=== PATIENT | female | born 1960 | race Caucasian/White ===

== ENCOUNTER 2017-11-11 21:05 | Emergency (ER) | payer SELFPAY ==
--- NOTE | 2017-11-11 22:06 | ER Document Report ---
ED General - General Chief Complaint: Leg Pain Stated Complaint: LEFT LEG PAIN Time Seen by Provider: 11/11/17 22:05 Notes: Patient is a 57-year-old female that presents to the emergency department for chief complaint of left leg swelling and knee pain. Patient states that he has been having these symptoms for about 2 weeks. And this seemed to be worse so she decided to come to the emergency department. He states the pain is mainly around her left knee which she is noticed the swelling, and then it started to swell more around her ankle as well. When she noticed some redness that she is concerned that which brought her to the emergency department. She rates the pain around her knee as a 5 out of 10, worse with range of motion. She states that she had an injury several months ago when she stepped on the floor board in the house she was living in with her left leg, and at that time she had her injured her left knee. She also reports having chronic Lyme disease, and she feels that her joints have been aching more recently well. She was diagnosed with this approximately 4 years ago. She denies having any fevers, chills, chest pain, shortness of breath, nausea, vomiting or abdominal pain. Past Medical History: Chronic Lyme disease Past Surgical History: Social History: Denies tobacco, alcohol or drug use Family History: Reviewed and noncontributory for presenting illness Allergies: Reviewed, see documented allergy list. REVIEW OF SYSTEMS: Unless otherwise stated in this report the patient's positive and negative responses for review of systems for constitutional, eyes, ENT, cardiovascular, respiratory, gastrointestinal, neurological, genitourinary, musculoskeletal, and integumentary systems and related systems to the presenting problem are either as stated in the HPI or were not pertinent or were negative for the symptoms and/or complaints related to the presenting medical problem. PHYSICAL EXAMINATION: Vital signs reviewed, nursing noted reviewed. GENERAL: Well-appearing, well-nourished and in no acute distress. HEAD: Atraumatic, normocephalic. EYES: Eyes appear normal, extraocular movements intact, sclera anicteric, conjunctiva are normal. ENT: nares patent, oropharynx clear without exudates. Moist mucous membranes. NECK: Normal range of motion, supple without lymphadenopathy LUNGS: Breath sounds clear to auscultation bilaterally and equal. No wheezes rales or rhonchi. HEART: Regular rate and rhythm without murmurs ABDOMEN: Soft, nontender, normoactive bowel sounds. No rebound, guarding, or rigidity. No masses appreciated. EXTREMITIES: The left knee has a mild effusion, and palpable Cormier's cyst, and some discomfort with range of motion with flexion and extension, there is 1+ pitting edema distal to the left knee. With mild erythema and chronic stasis changes, no evidence of cellulitis, no warmth. Patient noted to have discomfort with range of motion of the hands, and she does have ulnar deviation of her metacarpal phalangeal joints, bilaterally. The rest of her extremity exam is grossly unremarkable. NEUROLOGICAL: No focal neurological deficits. Moves all extremities spontaneously Motor and sensory grossly intact on exam. PSYCH: Normal mood, normal affect. SKIN: Warm, Dry, normal turgor, no rashes or lesions noted on exposed skin TRAVEL OUTSIDE OF THE [place] IN LAST 30 DAYS: No - Related Data Allergies/Adverse Reactions: acetaminophen Allergy (Verified 11/11/17 22:38) Past Medical History - Social History Smoking Status: Never Smoker Family History: Reviewed & Not Pertinent Physical Exam - Vital signs Vitals: Temp Pulse Resp BP Pulse Ox 98.1 F 87 20 145/62 H 100 11/11/17 21:43 11/11/17 21:43 11/11/17 21:43 11/11/17 21:43 11/11/17 21:43 Course - Re-evaluation Re-evalutation: Patient seen and examined vital signs reviewed. imaging were ordered as appropriate for the patient's presenting symptoms and complaint, with consideration of any critical or life threatening conditions that may be associated with their obtained history and exam as noted above. Patient was treated with IM Depo-Medrol 40 mg, and naproxen, also apply Jae wrap to the left knee. Results were reviewed when available and demonstrated left knee arthritis on knee x-ray The patient was re-evaluated and was improved Evaluation was most consistent with Cormier's cyst, left knee effusion, and pain, likely from prior injury, however given unilateral lower extremity edema, there is a mild suspicion for possible DVT, therefore will order duplex imaging to be performed as an outpatient tomorrow morning, patient was agreeable to this, stated that she will follow-up with the imaging center tomorrow morning. Results were discussed with the patient at this point, after careful consideration I feel that that patient can be discharged from the emergency department, the patient was educated treatments and reasons to return to the emergency department based on their presumed diagnosis as noted above, they were advised to followup with a primary care physician in 2-3 days. Patient was agreeable to plan of care. *Note is created using voice recognition software and may contain spelling, syntax or grammatical errors. Knee X-Ray 11/11/17 22:22 IMPRESSION: No acute findings. - Vital Signs Vital signs: Temp Pulse Resp BP Pulse Ox 98.1 F 87 20 145/62 H 100 11/11/17 21:43 11/11/17 21:43 11/11/17 21:43 11/11/17 21:43 11/11/17 21:43 - EKG Interpretation by Me Additional EKG results interpreted by me: EKG demonstrates sinus rhythm with a ventricular rate of 93 bpm, normal axis, normal intervals, no evidence of acute ischemia, no prior EKG for comparison. Procedures - Immobilization Left Knee Pre-Proc Neuro Vasc Exam: Normal Immobilizer type: Jae wrap Performed by: RN Post-Proc Neuro Vasc Exam: Normal, Unchanged from pre-exam Discharge - Discharge Clinical Impression: Peripheral edema Knee pain Qualifiers: Chronicity: acute Laterality: left Qualified Code(s): M25.562 - Pain in left knee Condition: Stable Disposition: HOME, SELF-CARE Instructions: Cormier's Cyst ([facility]), Edema, Peripheral ([facility]) Additional Instructions: Please follow-up to have the imaging done of your leg to look for possible blood clot tomorrow. If you have any worsening symptoms, please return immediately to the emergency department. Forms: Follow-Up Outpatient Testing Referrals: JOHN PARRA MD [ACTIVE STAFF] - Follow up in 3-5 days (or your primary care. ) Print Language: Italian
[2017-11-11] MEDS ORDERED: METHYLPREDNISOLONE ACETATE INJ 40 MG/1 ML ML IM STA (22:25)
[2017-11-11] MEDS ORDERED: NAPROXEN 250 MG TABLET PO ONE (22:26)
--- NOTE | 2017-11-11 23:19 | RADIOLOGY REPORT (SQ) ---
EXAM DESCRIPTION: XR KNEE 3 VIEWS COMPLETED DATE/TME: 11/11/2017 22:22 CLINICAL HISTORY: 57 years Female, left knee pain, swelling COMPARISON: None. Findings: Bones, joints, and soft tissues of the LEFT XR KNEE 3 VIEWS appear otherwise intact. IMPRESSION: No acute findings.
[2017-11-12 00:30] VITALS: BP 124/53
--- NOTE | 2017-11-12 16:53 | EKG REPORT ---
SEVERITY:- OTHERWISE NORMAL ECG - SINUS RHYTHM LOW VOLTAGE IN FRONTAL LEADS : Confirmed by: Hollie Robbins MD 12-Nov-2017 16:53:10
== END 2017-11-12 00:36 | disposition home or self-care (01) ==
LOC: ER 21:05
DX: R60.9 Edema, unspecified (principal); M25.562 Pain in left knee; M79.605 Pain in left leg
CPT/HCPCS: 93005; 99283; 73562; 93010; J1020

== ENCOUNTER 2018-01-05 17:15 | Inpatient (IN) | payer SELFPAY ==
[2018-01-05] MEDS ORDERED: NORMAL SALINE 1000 ML 1,000 ML IV ONE (19:03)
[2018-01-05] MEDS ORDERED: ONDANSETRON HCL INJ/PF 4 MG/2 ML SDV IV ONE (19:03)
[2018-01-05] MEDS ORDERED: KETOROLAC TROMETHAMINE INJ/PF 30 MG/1 ML SDV IV ONE (19:06)
[2018-01-05 19:07] LABS: ABSOLUTE LYMPHOCYTES (AUTO) 1.5 10^3/uL (0.5-4.7); ABSOLUTE MONOCYTES (AUTO) 0.7 10^3/uL (0.1-1.4); ABSOLUTE NEUT (AUTO) 5.4 10^3/uL (1.7-8.2); BASOPHILS % (AUTO) 0.6 % (0-2); HEMATOCRIT 33.7 % (36.0-47.0); LYMPHOCYTES % (AUTO) 19.6 % (13-45); MEAN CORPUSCULAR HEMOGLOBIN 24.6 pg (27.0-33.4); MEAN CORPUSCULAR HGB CONC 32.6 g/dL (32.0-36.0); MEAN CORPUSCULAR VOLUME 75 fl (80-97); PLATELET COUNT 395 10^3/uL (150-450); RED BLOOD COUNT 4.47 10^6/uL (3.72-5.28); RED CELL DISTRIBUTION WIDTH 18.4 % (11.5-14.0); SEGMENTED NEUTROPHILS % (AUTO) 70.8 % (42-78); TOTAL CELLS COUNTED % (AUTO) 100 %; WHITE BLOOD COUNT 7.6 10^3/uL (4.0-10.5)
--- NOTE | 2018-01-05 19:07 | ER Document Report ---
ED General - General Chief Complaint: General Weakness Stated Complaint: WEAKNESS Time Seen by Provider: 01/05/18 18:31 Notes: Patient is a 57-year old female denies chronic medical problems who presents with feeling generally fatigued, weak, and having 2 weeks of progressively worsening pain to her right ankle. She notes a progressively worsening swelling with associated erythema to the area but now precludes her from walking that it is so painful. She does describe it as a throbbing, aching, constant pain worsened by attempts at ambulating. She has tried over-the- counter medications without any relief. She also notes that for the past 2-3 months she has had pain and swelling of her left knee. She also notes that for the past 5-6 months she has had pain and swelling of her bilateral hands. She was seen in the emergency room regarding her left knee in October, had a normal DVT ultrasound at that time but states that her symptoms have not all improved. She does not have a general physician. She denies any known history of rheumatoid arthritis, lupus or chronic immunologic disorders. She denies recorded fevers at home but states that she has felt subjectively febrile. She also notes that she has had nausea but no vomiting. The history and physical exam was obtained by the provider using Thai. A formal hospital back seam stitcher was offered to the patient and any family at the bedside at the beginning of the encounter and was declined. TRAVEL OUTSIDE OF THE [place] IN LAST 30 DAYS: No - Related Data Allergies/Adverse Reactions: acetaminophen Allergy (Verified 01/05/18 21:30) Past Medical History - General Information source: Patient, Relative - Social History Smoking Status: Never Smoker Frequency of alcohol use: None Drug Abuse: None Lives with: Spouse/Significant other Family History: Reviewed & Not Pertinent Renal/ Medical History: Denies: Hx Peritoneal Dialysis Review of Systems - Review of Systems Notes: Constitutional: Negative for fever. HENT: Negative for sore throat. Eyes: Negative for visual changes. Cardiovascular: Negative for chest pain. Respiratory: Negative for shortness of breath. Gastrointestinal: Negative for abdominal pain, vomiting or diarrhea. Genitourinary: Negative for dysuria. Musculoskeletal: Positive for right ankle, left knee and bilateral hand pain Skin: Positive for erythema of the right ankle Neurological: Negative for headaches, weakness or numbness. 10 point ROS negative except as marked above and in HPI. Physical Exam - Vital signs Vitals: Temp Pulse Resp BP Pulse Ox 99.1 F 117 H 14 108/58 L 97 01/05/18 17:59 01/05/18 17:59 01/05/18 17:59 01/05/18 17:59 01/05/18 17:59 Interpretation: Tachycardic Notes: PHYSICAL EXAMINATION: GENERAL: Appears moderately uncomfortable but in no acute distress HEAD: Atraumatic, normocephalic. EYES: Pupils equal round and reactive to light, extraocular movements intact, sclera anicteric, conjunctiva are normal. ENT: nares patent, oropharynx clear without exudates. Moderately dry mucous membranes. NECK: Normal range of motion, supple without lymphadenopathy LUNGS: Breath sounds clear to auscultation bilaterally and equal. No wheezes rales or rhonchi. HEART: Regular tachycardia without murmurs ABDOMEN: Soft, nontender, normoactive bowel sounds. No guarding, no rebound. No masses appreciated. EXTREMITIES: Patient is able to fully dorsi and plantarflex the right ankle with apparent pain. There is notable diffuse swelling of the left knee joint. There is notable swelling of all digits of the bilateral hands without associated erythema. NEUROLOGICAL: No focal neurological deficits. Moves all extremities spontaneously and on command. PSYCH: Normal mood, normal affect. SKIN: Warm, Dry, normal turgor, mild diffuse erythema of the right ankle joint Course - Re-evaluation Re-evalutation: 01/05/18 19:05 Patient presents with a somewhat unusual history. Her general complaint today is that for the past 15 days she has had progressively worsening swelling and pain to her right ankle that is preventing her from walking. However on exam it is noted the patient has swelling to both of her hands as well as her left knee. She states that her hands that has been ongoing for the past 4-5 months and that the swelling in her knee has been present for at least 2 months. She states that she has been nauseated, had a subjective fever and feels generally unwell at home for the past 48 hours. Concern would be for possible multifocal infection versus possible rheumatologic illness. Will obtain laboratories, cultures, begin IV fluids, pain control and reassess the patient 01/05/18 20:35 Patient's laboratories show a markedly elevated ESR and CRP, normal white count , normal lactate. Do suspect that this is likely a new onset rheumatologic illness given polyarthritis with associated elevations of inflammatory markers. Discussed with Dr. Gallegos, he has accepted the patient for admission and will initiate IV steroids. Patient is agreeable with this plan. - Vital Signs Vital signs: Temp Pulse Resp BP Pulse Ox 98.3 F 90 16 110/53 L 94 01/05/18 23:49 01/05/18 23:49 01/05/18 23:49 01/05/18 23:49 01/05/18 23:49 - Laboratory Result Diagrams: 01/05/18 18:58 01/05/18 18:58 Laboratory results interpreted by me: 01/05/18 01/05/18 01/05/18 18:58 18:58 20:39 Hgb 11.0 L Hct 33.7 L MCV 75 L MCH 24.6 L RDW 18.4 H ESR 82 H AST 38 H C-Reactive Protein 159.1 H Urine Ketones TRACE H Urine Urobilinogen 2.0 H Discharge - Discharge Clinical Impression: Polyarticular arthritis, Left ankle swelling, Unable to ambulate, Tachycardia Condition: Fair Disposition: ADMITTED INPATIENT Admitting Provider: Hospitalist Unit Admitted: Telemetry
[2018-01-05 19:39] LABS: ALANINE AMINOTRANSFERASE 16 U/L (9-52); ALKALINE PHOSPHATASE 92 U/L (38-126); ANION GAP 12 (5-19); ASPARTATE AMINO TRANSFERASE 38 U/L (14-36); BILIRUBIN,DIRECT 0.4 mg/dL (0.0-0.4); BILIRUBIN,TOTAL 1.1 mg/dL (0.2-1.3); BLOOD UREA NITROGEN 12 mg/dL (7-20); CALCIUM 9.4 mg/dL (8.4-10.2); CARBON DIOXIDE 27 mmol/L (22-30); CHLORIDE 102 mmol/L (98-107); GLUCOSE 98 mg/dL (75-110); SODIUM 140.7 mmol/L (137-145); TOTAL PROTEIN 8.2 g/dL (6.3-8.2)
[2018-01-05 19:47] LABS: ERYTHROCYTE SEDIMENTATION RATE 82 mm/hr (0-30)
[2018-01-05 19:56] LABS: C-REACTIVE PROTEIN 159.1 mg/L (<10.0)
[2018-01-05] MEDS ORDERED: CEFTRIAXONE INJ 1000 MG VIAL IV ONE (20:10)
[2018-01-05] MEDS ORDERED: METHYLPREDNISOLONE INJ 125 MG/2 ML SDV IV ONE (20:16)
[2018-01-05] MEDS ORDERED: MAG HYDROX/AL HYDROX/SIMETH SUSP 30 ML UDCUP PO PRN (20:27)
[2018-01-05] MEDS ORDERED: NORMAL SALINE 1000 ML 1,000 ML IV SCH (20:30)
[2018-01-05] MEDS ORDERED: COLCHICINE 0.6 MG TABLET PO PRN (20:30)
[2018-01-05] MEDS ORDERED: KETOROLAC TROMETHAMINE INJ/PF 30 MG/1 ML SDV IV PRN (20:30)
[2018-01-05] MEDS ORDERED: HYDROCORTISONE SOD SUCCINATE INJ/PF 100 MG/2 ML SDV ONE (20:36)
[2018-01-05 20:56] LABS: APPEARANCE,URINE CLEAR; BILIRUBIN,URINE NEGATIVE (NEGATIVE); COLOR,URINE YELLOW; GLUCOSE, URINE NEGATIVE (NEGATIVE); KETONES,URINE TRACE mg/dL (NEGATIVE); LEUKOCYTE ESTERASE,URINE NEGATIVE (NEGATIVE); NITRITE,URINE NEGATIVE (NEGATIVE); PROTEIN,URINE NEGATIVE (NEGATIVE); URINE SPECIFIC GRAVITY 1.009
[2018-01-05] MEDS: HEPARIN SOD (PORCINE) 5,000 UNIT/ML 1 ML SYRINGE SUBCUT SCH (22:06)
[2018-01-05] MEDS: HYDROCORTISONE SOD SUCCINATE INJ/PF 100 MG/2 ML SDV IV SCH (23:15)
[2018-01-06 04:55] LABS: ABSOLUTE LYMPHOCYTES (AUTO) 0.5 10^3/uL (0.5-4.7); ABSOLUTE MONOCYTES (AUTO) 0.1 10^3/uL (0.1-1.4); ABSOLUTE NEUT (AUTO) 3.5 10^3/uL (1.7-8.2); BASOPHILS % (AUTO) 0.1 % (0-2); HEMATOCRIT 28.1 % (36.0-47.0); HEMOGLOBIN 9.2 g/dL (12.0-15.5); LYMPHOCYTES % (AUTO) 11.6 % (13-45); MEAN CORPUSCULAR HEMOGLOBIN 24.4 pg (27.0-33.4); MEAN CORPUSCULAR HGB CONC 32.6 g/dL (32.0-36.0); MEAN CORPUSCULAR VOLUME 75 fl (80-97); MONOCYTES % (AUTO) 1.8 % (3-13); PLATELET COUNT 321 10^3/uL (150-450); RED BLOOD COUNT 3.76 10^6/uL (3.72-5.28); RED CELL DISTRIBUTION WIDTH 18.3 % (11.5-14.0); SEGMENTED NEUTROPHILS % (AUTO) 86.5 % (42-78); TOTAL CELLS COUNTED % (AUTO) 100 %; WHITE BLOOD COUNT 4.1 10^3/uL (4.0-10.5)
--- NOTE | 2018-01-06 05:35 | PDOC H&P ---
History of Present Illness Admission Date/PCP: 01/05/18 20:46 Patient complains of: Hand and wrist swelling and pain History of Present Illness: HARINI GONZALEZ is a 57 year old Kiswahili-speaking female with a six-month history of recurrent bouts of swelling of the wrists and ankles associated with subjective fevers. Patient has seen primary care in [place] recommending a trial of antibiotics which were ineffective. Family member supplied foreign source steroid which rapidly improved symptoms over a 3-day course. Her symptoms have become so severe she cannot walk, denies headache nausea vomiting , shortness of breath or chest pain no history of hepatitis, questionable Lyme diagnosis. In the emergency room she is found to have acutely swollen wrist and hands, ankles and feet bilaterally. CRP and ESR markedly elevated. She is referred to the hospitalist for admission Past Medical History Psychiatric Medical History: Denies: Alcohol Dependency, Depression, Substance Abuse, Tobacco Dependency Social History Information Source: Patient Lives with: Spouse/Significant other Smoking Status: Never Smoker Frequency of Alcohol Use: None Hx Recreational Drug Use: No Drugs: None Hx Prescription Drug Abuse: No - Advance Directive Resuscitation Status: Full Code Family History Family History: Arthritis Parental Family History Reviewed: Yes Children Family History Reviewed: Yes Sibling(s) Family History Reviewed.: Yes Medication/Allergy Home Medications: No Home Medications 01/05/18 Allergies/Adverse Reactions: acetaminophen Allergy (Verified 01/05/18 21:30) Review of Systems Constitutional: PRESENT: as per HPI, fatigue, fever(s), weakness. ABSENT: headache(s), night sweats Eyes: ABSENT: visual disturbances Ears: ABSENT: hearing changes Cardiovascular: ABSENT: chest pain, dyspnea on exertion, edema, orthropnea, palpitations Respiratory: ABSENT: cough, hemoptysis Gastrointestinal: ABSENT: abdominal pain, constipation, diarrhea, hematemesis, hematochezia, nausea, vomiting Genitourinary: ABSENT: dysuria, hematuria Musculoskeletal: PRESENT: as per HPI, joint swelling, muscle weakness Integumentary: ABSENT: rash, wounds Neurological: ABSENT: abnormal gait, abnormal speech, confusion, dizziness, focal weakness, syncope Psychiatric: ABSENT: anxiety, depression, homidical ideation, suicidal ideation Endocrine: ABSENT: cold intolerance, heat intolerance, polydipsia, polyuria Hematologic/Lymphatic: ABSENT: easy bleeding, easy bruising Physical Exam Vital Signs: Temp Pulse Resp BP Pulse Ox 98.3 F 90 16 110/53 L 94 01/05/18 23:49 01/05/18 23:49 01/05/18 23:49 01/05/18 23:49 01/05/18 23:49 Intake & Output 01/04/18 01/05/18 01/06/18 11:59 11:59 11:59 Intake Total 1000 Balance 1000 Weight 54.4 kg General appearance: PRESENT: cooperative, mild distress. ABSENT: disheveled, morbidly obese, obese Head exam: PRESENT: atraumatic, normocephalic Eye exam: PRESENT: conjunctiva pink, EOMI, PERRLA. ABSENT: scleral icterus Ear exam: PRESENT: normal external ear exam Mouth exam: PRESENT: moist, tongue midline Neck exam: ABSENT: carotid bruit, JVD, lymphadenopathy, thyromegaly Respiratory exam: PRESENT: clear to auscultation sriram. ABSENT: rales, rhonchi, wheezes Cardiovascular exam: PRESENT: RRR. ABSENT: diastolic murmur, rubs, systolic murmur Pulses: PRESENT: normal dorsalis pedis pul Vascular exam: PRESENT: normal capillary refill GI/Abdominal exam: PRESENT: normal bowel sounds, soft. ABSENT: distended, guarding, mass, organolmegaly, rebound, tenderness Rectal exam: PRESENT: deferred Extremities exam: PRESENT: joint swelling, pedal edema, tenderness, +1 edema. ABSENT: full ROM - Limited by pain and swelling of the wrist, ankle hand and feet Neurological exam: PRESENT: alert, awake, oriented to person, oriented to place , oriented to time, oriented to situation, CN II-XII grossly intact. ABSENT: motor sensory deficit Psychiatric exam: PRESENT: agitated Skin exam: PRESENT: dry, intact, warm. ABSENT: cyanosis, rash Results Laboratory Results: 01/06/18 04:21 01/06/18 04:21 WBC 4.1 RBC 3.76 Hgb 9.2 L Hct 28.1 L MCV 75 L MCH 24.4 L MCHC 32.6 RDW 18.3 H Plt Count 321 Seg Neutrophils % 86.5 H Lymphocytes % 11.6 L Monocytes % 1.8 L Eosinophils % 0.0 Basophils % 0.1 Absolute Neutrophils 3.5 Absolute Lymphocytes 0.5 Absolute Monocytes 0.1 Absolute Eosinophils 0.0 Absolute Basophils 0.0 Assessment & Plan - Diagnosis (1) Inflammatory arthritis Is this a current diagnosis for this admission?: Yes Plan: Likely rheumatological, autoimmune and hepatitis profile pending, trial stress dose steroids, symptomatic management follow-up labs (2) Unable to ambulate Is this a current diagnosis for this admission?: Yes Plan: Secondary to #1, symptomatic management, follow-up labs - Time Time Spent: 30 to 50 Minutes
[2018-01-06 05:36] LABS: ALANINE AMINOTRANSFERASE 21 U/L (9-52); ALBUMIN 2.9 g/dL (3.5-5.0); ALKALINE PHOSPHATASE 77 U/L (38-126); ANION GAP 10 (5-19); ASPARTATE AMINO TRANSFERASE 19 U/L (14-36); BILIRUBIN,DIRECT 0.2 mg/dL (0.0-0.4); BILIRUBIN,TOTAL 0.4 mg/dL (0.2-1.3); BLOOD UREA NITROGEN 12 mg/dL (7-20); CALCIUM 8.5 mg/dL (8.4-10.2); CARBON DIOXIDE 22 mmol/L (22-30); CHLORIDE 111 mmol/L (98-107); GLUCOSE 137 mg/dL (75-110); SODIUM 142.5 mmol/L (137-145)
[2018-01-06] MEDS: HEPARIN SOD (PORCINE) 5,000 UNIT/ML 1 ML SYRINGE SUBCUT SCH ×3 (05:43→21:37)
[2018-01-06] MEDS: HYDROCORTISONE SOD SUCCINATE INJ/PF 100 MG/2 ML SDV IV SCH ×2 (05:43→13:52)
[2018-01-06] MEDS: DOCUSATE SODIUM 100 MG CAPSULE PO SCH ×2 (10:00→18:27)
[2018-01-06] MEDS ORDERED: NORMAL SALINE 1000 ML 1,000 ML IV ONE (13:00)
[2018-01-06] MEDS ORDERED: ACETAMINOPHEN 325 MG TABLET PO PRN (15:20)
--- NOTE | 2018-01-06 15:25 | PDOC PROGRESS REPORT ---
Subjective Progress Note for:: 01/06/18 Subjective:: HARINI GONZALEZ is a 57 year old Hong Konger-speaking female with a six-month history of recurrent bouts oligoarticular, asymmetric especially lower extremities of swelling and pain. As per daughter first episode started about 6 years ago she was worked up for Lyme disease which came back positive and she was properly treated. Her symptoms were relieved but a year later she had similar symptoms again. This time she was seen by digital camera technician and she was told that she does not have any rheumatological disease. Since then she has not been seeing any doctor but has been struggling from recurrent bouts of joint swelling and pain. She is originally from [facility] and she is receiving some types of medication which probably is steroids and she says it helps with her swelling and pain. She has morning stiffness of about 2-3 hours, associated with generalized fatigue, joint pain, hair loss, subjective fevers. She denies any photosensitivity, vision changes, oral old genital ulcers, history of STDs. She does endorse dry eyes, dry mouth and peeling of her skin especially in the lower extremities. Her daughter stated that she was diagnosed with Raynaud's and she gets purplish distal extremity when exposed to cold. Her mother also suffers from rheumatoid arthritis. Patient has seen primary care in [place] recommending a trial of antibiotics which were ineffective. Reason For Visit: INFLAMMATORY POLYARTHRITIS Physical Exam Vital Signs: Temp Pulse Resp BP Pulse Ox 97.7 F 90 16 115/58 L 99 01/06/18 12:29 01/06/18 12:29 01/06/18 12:29 01/06/18 12:29 01/06/18 12:29 Intake & Output 01/05/18 01/06/18 01/07/18 06:59 06:59 06:59 Intake Total 1000 Balance 1000 Weight 54.4 kg General appearance: PRESENT: no acute distress, well-developed, well-nourished Head exam: PRESENT: atraumatic, normocephalic Eye exam: PRESENT: conjunctiva pink, EOMI, PERRLA. ABSENT: scleral icterus Mouth exam: PRESENT: moist, tongue midline, other - Lips are very thin with several minute petechias. Neck exam: PRESENT: other - TMJ joint normal range of motion. Neck range of motion limited by pain and stiffness.. ABSENT: carotid bruit, JVD, lymphadenopathy, thyromegaly Respiratory exam: PRESENT: clear to auscultation sriram. ABSENT: rales, rhonchi, wheezes Cardiovascular exam: PRESENT: RRR. ABSENT: diastolic murmur, rubs, systolic murmur Pulses: PRESENT: normal dorsalis pedis pul Vascular exam: PRESENT: normal capillary refill GI/Abdominal exam: PRESENT: normal bowel sounds, soft. ABSENT: distended, guarding, mass, organolmegaly, rebound, tenderness Extremities exam: PRESENT: joint swelling, other - DIP, PIP, MCP and wrist joint restricted range of motion. Patient cannot make a full fist. There is diffuse signs of synovitis on DIP and PIPs. Negative for dystrophic changes. Shoulder and elbow limited range of motion restricted by stiffness and pain. No dystrophic changes. Ankle, metatarsals, knees, hips mild limited range of motion by pain and stiffness. Tenderness over bilateral greater trochanters. Diffuse tenderness over vertebral joints. Neurological exam: PRESENT: alert, awake, oriented to person, oriented to place , oriented to time, oriented to situation, CN II-XII grossly intact, normal gait. ABSENT: motor sensory deficit Psychiatric exam: PRESENT: anxious Skin exam: PRESENT: dry, intact, warm. ABSENT: cyanosis, rash Results Laboratory Results: 01/06/18 04:21 01/06/18 04:21 01/06/18 01/06/18 04:21 04:21 WBC 4.1 RBC 3.76 Hgb 9.2 L Hct 28.1 L MCV 75 L MCH 24.4 L MCHC 32.6 RDW 18.3 H Plt Count 321 Seg Neutrophils % 86.5 H Lymphocytes % 11.6 L Monocytes % 1.8 L Eosinophils % 0.0 Basophils % 0.1 Absolute Neutrophils 3.5 Absolute Lymphocytes 0.5 Absolute Monocytes 0.1 Absolute Eosinophils 0.0 Absolute Basophils 0.0 Sodium 142.5 Potassium 4.0 Chloride 111 H Carbon Dioxide 22 Anion Gap 10 BUN 12 Creatinine 0.59 Est GFR ( Amer) > 60 Est GFR (Non-Af Amer) > 60 Glucose 137 H Calcium 8.5 Total Bilirubin 0.4 AST 19 ALT 21 Alkaline Phosphatase 77 Total Protein 6.0 L Albumin 2.9 L Assessment & Plan - Diagnosis (1) Polyarticular arthritis Is this a current diagnosis for this admission?: Yes Plan: Likely autoimmune. CBC negative except for anemia, CMP within normal limits. Markedly elevated ESR and CRP. Knee and hand x-rays. Pending VU panel, vitamin D, TSH, Lyme serology, parvovirus, rheumatoid factor and hepatitis panel Will start on empiric glucocorticoids. Patient will greatly benefit for being evaluated by a digital camera technician. (2) Unable to ambulate Is this a current diagnosis for this admission?: Yes Plan: Due to problem #1. Supportive care. Physical therapy. (3) Anemia Is this a current diagnosis for this admission?: Yes Plan: Likely anemia of chronic disease. Denies any hematemesis, hemoptysis, melena, hematochezia, vaginal bleeding. Iron panel, folic acid level, vitamin B12 level. Stool guaiac
[2018-01-06 16:19] LABS: IRON(TIBC) 16.6 ug/dL (37-170)
[2018-01-06] MEDS: PREDNISONE 20 MG TABLET PO SCH (18:27)
[2018-01-06] MEDS: TRAMADOL HCL 50 MG TABLET PO PRN (18:27)
--- NOTE | 2018-01-06 21:06 | RADIOLOGY REPORT (SQ) ---
EXAM DESCRIPTION: KNEE LEFT 4 VIEW COMPLETED DATE/TIME: 01/06/2018 5:35 pm REASON FOR STUDY: Rule out giant erosions COMPARISON: None. NUMBER OF VIEWS: Four views. TECHNIQUE: AP, lateral, and both oblique radiographic images acquired of the left knee. LIMITATIONS: None. FINDINGS: MINERALIZATION: Normal. BONES: No acute fracture or dislocation. No worrisome bone lesions. No significant osteophytes. JOINT: No effusion. No chondrocalcinosis. OTHER: No other significant finding. IMPRESSION: NEGATIVE STUDY OF THE LEFT KNEE. NO EXPLANATION FOR PAIN. TECHNICAL DOCUMENTATION: JOB ID: [id number] [employer]- All Rights Reserved Reading location - IP/workstation name: [email or web address]
--- NOTE | 2018-01-06 21:07 | RADIOLOGY REPORT (SQ) ---
EXAM DESCRIPTION: KNEE RIGHT 4 VIEWS COMPLETED DATE/TIME: 01/06/2018 5:35 pm REASON FOR STUDY: Rule out giant erosions COMPARISON: None. NUMBER OF VIEWS: Four views. TECHNIQUE: AP, lateral, and both oblique radiographic images acquired of the right knee. LIMITATIONS: None. FINDINGS: MINERALIZATION: Normal. BONES: No acute fracture or dislocation. No worrisome bone lesions. No significant osteophytes. JOINT: No effusion. No chondrocalcinosis. OTHER: No other significant finding. IMPRESSION: NEGATIVE STUDY OF THE RIGHT KNEE. NO EXPLANATION FOR PAIN. TECHNICAL DOCUMENTATION: JOB ID: [id number] [employer]- All Rights Reserved Reading location - IP/workstation name: [email or web address]
--- NOTE | 2018-01-06 21:21 | RADIOLOGY REPORT (SQ) ---
4 VIEWS OF THE RIGHT HAND HISTORY: Hand pain. Evaluate for erosions. COMPARISON: None. FINDINGS: Generalized osteopenia is present. No acute fracture is seen. Erosions are seen along the scaphoid, triquetrum, and second and third metacarpal bases. Diffuse soft tissue swelling of the left hand/wrist. IMPRESSION: Erosive changes within the carpus and metacarpal bases.
[2018-01-07] MEDS: HEPARIN SOD (PORCINE) 5,000 UNIT/ML 1 ML SYRINGE SUBCUT SCH ×3 (05:21→21:30)
[2018-01-07 07:37] LABS: HEPATITIS A AB IGM Negative (Negative); HEPATITIS B CORE AB IGM Negative (Negative); HEPATITS B SURFACE ANTIGEN Negative (Negative)
[2018-01-07 10:01] LABS: FREE T3 2.55 pg/mL (2.77-5.27); FREE T4 (FREE THYROXINE) 1.61 ng/dL (0.78-2.19)
[2018-01-07] MEDS: DOCUSATE SODIUM 100 MG CAPSULE PO SCH ×2 (10:13→18:24)
[2018-01-07] MEDS: PREDNISONE 20 MG TABLET PO SCH ×2 (10:13→18:24)
[2018-01-07] MEDS: TRAMADOL HCL 50 MG TABLET PO PRN ×2 (10:13→18:23)
[2018-01-07 10:56] LABS: HEPATITIS C VIRUS ANTIBODY <0.1 s/co ratio (0.0-0.9)
--- NOTE | 2018-01-07 16:50 | PDOC PROGRESS REPORT ---
Subjective Progress Note for:: 01/07/18 Subjective:: HARINI GONZALEZ is a 57 year old Guinean-speaking female with a six-month history of recurrent bouts oligoarticular, asymmetric especially lower extremities of swelling and pain. As per daughter first episode started about 6 years ago she was worked up for Lyme disease which came back positive and she was properly treated. Her symptoms were relieved but a year later she had similar symptoms again. This time she was seen by maintenance controller and she was told that she does not have any rheumatological disease. Since then she has not been seeing any doctor but has been struggling from recurrent bouts of joint swelling and pain. She is originally from [facility] and she is receiving some types of medication which probably is steroids and she says it helps with her swelling and pain. She has morning stiffness of about 2-3 hours, associated with generalized fatigue, joint pain, hair loss, subjective fevers. She denies any photosensitivity, vision changes, oral old genital ulcers, history of STDs. She does endorse dry eyes, dry mouth and peeling of her skin especially in the lower extremities. Her daughter stated that she was diagnosed with Raynaud's and she gets purplish distal extremity when exposed to cold. Her mother also suffers from rheumatoid arthritis. Patient has seen primary care in [place] recommending a trial of antibiotics which were ineffective. 01/07/2018. No acute events overnight. Patient has significant improvement of her pain and swelling patient. Patient is able to ambulate better. Patient daughter was present at the time of my encounter and with the help of her I had advised patient that it is very important that she has to follow-up with maintenance controller as outpatient. She denies any fever, chills, nausea, vomiting, diarrhea or any constipation. Reason For Visit: INFLAMMATORY POLYARTHRITIS Physical Exam Vital Signs: Temp Pulse Resp BP Pulse Ox 97.6 F 73 15 122/57 L 94 01/07/18 12:48 01/07/18 12:48 01/07/18 12:48 01/07/18 12:48 01/07/18 12:48 Intake & Output 01/06/18 01/07/18 01/08/18 06:59 06:59 06:59 Intake Total 1000 1715 Balance 1000 1715 Weight 54.4 kg 55 kg General appearance: PRESENT: no acute distress, well-developed, well-nourished Respiratory exam: PRESENT: clear to auscultation sriram. ABSENT: rales, rhonchi, wheezes Cardiovascular exam: PRESENT: RRR. ABSENT: diastolic murmur, rubs, systolic murmur Pulses: PRESENT: normal dorsalis pedis pul GI/Abdominal exam: PRESENT: normal bowel sounds, soft. ABSENT: distended, guarding, mass, organolmegaly, rebound, tenderness Musculoskeletal exam: PRESENT: other - Bilateral hand swelling has improved. Patient is able to make a fist better than yesterday. Bilateral lower extremity swelling has also improved. However she still has residual swelling and if this stiffness from her chronic arthritis. Skin exam: PRESENT: dry, intact, warm. ABSENT: cyanosis, rash Results Laboratory Results: 01/06/18 04:21 01/06/18 04:21 01/06/18 01/06/18 01/07/18 15:55 15:56 08:52 Iron 16.6 L TIBC 287 % Saturation 6 Ferritin 60.80 Vitamin B12 > 1000.0 H Folate 16.50 TSH 0.41 L Free T4 1.61 Free T3 pg/mL 2.55 L Impressions: Hand X-Ray 01/06/18 00:00 IMPRESSION: Erosive changes within the carpus and metacarpal bases. Knee X-Ray 01/06/18 00:00 IMPRESSION: NEGATIVE STUDY OF THE RIGHT KNEE. NO EXPLANATION FOR PAIN. Assessment & Plan - Diagnosis (1) Polyarticular arthritis Is this a current diagnosis for this admission?: Yes Plan: Likely autoimmune. CBC negative except for anemia, CMP within normal limits. Markedly elevated ESR and CRP. TSH 0.41, free T4 1.61. Hepatitis panel negative. Bilateral knee x-ray unremarkable hand x-ray positive for erosive changes and metacarpal joints could be secondary to inflammatory arthritis possibly rheumatoid. Pending VU panel, vitamin D, TSH, Lyme serology, parvovirus, rheumatoid factor. Continue prednisone 40 mg daily and PPI. Plan would be to discharge patient on a tapered dose of glucocorticoids to follow-up with a maintenance controller as outpatient depending on the finding of stool guaiac and the need for upper GI endoscopy. Patient will greatly benefit for being evaluated by a maintenance controller. (2) Unable to ambulate Is this a current diagnosis for this admission?: Yes Plan: Due to problem #1. Improving. Supportive care. Physical therapy. (3) Anemia Is this a current diagnosis for this admission?: Yes Plan: Microcytic anemia. Patient has been taking off on steroids for prolonged. Could be related to secondary to his gastritis. Denies any hematemesis, hemoptysis, melena, hematochezia, vaginal bleeding. Low iron panel suggestive of iron deficiency anemia. Start on iron sulfate p.o. twice daily. Pending stool guaiac. If positive will call surgery for possible endoscopy.
[2018-01-07] MEDS: FERROUS SULFATE 325 MG TABLET PO SCH (18:24)
[2018-01-07] MEDS: LANSOPRAZOLE 30 MG TAB.RAP.DR PO SCH (18:24)
[2018-01-08 05:27] LABS: ABSOLUTE LYMPHOCYTES (AUTO) 0.9 10^3/uL (0.5-4.7); ABSOLUTE MONOCYTES (AUTO) 0.4 10^3/uL (0.1-1.4); ABSOLUTE NEUT (AUTO) 9.8 10^3/uL (1.7-8.2); BASOPHILS % (AUTO) 0.1 % (0-2); HEMATOCRIT 26.1 % (36.0-47.0); HEMOGLOBIN 8.6 g/dL (12.0-15.5); LYMPHOCYTES % (AUTO) 8.2 % (13-45); MEAN CORPUSCULAR HEMOGLOBIN 24.9 pg (27.0-33.4); MEAN CORPUSCULAR HGB CONC 33.1 g/dL (32.0-36.0); MEAN CORPUSCULAR VOLUME 75 fl (80-97); MONOCYTES % (AUTO) 3.3 % (3-13); PLATELET COUNT 315 10^3/uL (150-450); RED BLOOD COUNT 3.46 10^6/uL (3.72-5.28); RED CELL DISTRIBUTION WIDTH 17.9 % (11.5-14.0); SEGMENTED NEUTROPHILS % (AUTO) 88.4 % (42-78); TOTAL CELLS COUNTED % (AUTO) 100 %
[2018-01-08 05:42] LABS: WHITE BLOOD COUNT 11.1 10^3/uL (4.0-10.5)
[2018-01-08 05:54] LABS: ALANINE AMINOTRANSFERASE 34 U/L (9-52); ALBUMIN 2.9 g/dL (3.5-5.0); ALKALINE PHOSPHATASE 79 U/L (38-126); ANION GAP 9 (5-19); ASPARTATE AMINO TRANSFERASE 25 U/L (14-36); BLOOD UREA NITROGEN 20 mg/dL (7-20); CALCIUM 9.1 mg/dL (8.4-10.2); CARBON DIOXIDE 24 mmol/L (22-30); CHLORIDE 107 mmol/L (98-107); GLUCOSE 123 mg/dL (75-110); POTASSIUM 4.5 mmol/L (3.6-5.0); SODIUM 140.2 mmol/L (137-145)
[2018-01-08 06:05] LABS: BILIRUBIN,DIRECT 0.1 mg/dL (0.0-0.4); BILIRUBIN,TOTAL 0.1 mg/dL (0.2-1.3)
[2018-01-08] MEDS: LANSOPRAZOLE 30 MG TAB.RAP.DR PO SCH (06:18)
[2018-01-08] MEDS: HEPARIN SOD (PORCINE) 5,000 UNIT/ML 1 ML SYRINGE SUBCUT SCH ×2 (06:18→13:31)
[2018-01-08] MEDS: TRAMADOL HCL 50 MG TABLET PO PRN (08:34)
[2018-01-08] MEDS: FERROUS SULFATE 325 MG TABLET PO SCH (08:35)
[2018-01-08] MEDS: PREDNISONE 20 MG TABLET PO SCH (09:20)
[2018-01-08] MEDS: DOCUSATE SODIUM 100 MG CAPSULE PO SCH (09:20)
[2018-01-08 11:06] LABS: ABSOLUTE LYMPHOCYTES (AUTO) 1.3 10^3/uL (0.5-4.7); ABSOLUTE MONOCYTES (AUTO) 0.4 10^3/uL (0.1-1.4); ABSOLUTE NEUT (AUTO) 7.4 10^3/uL (1.7-8.2); BASOPHILS % (AUTO) 0.1 % (0-2); HEMATOCRIT 26.7 % (36.0-47.0); HEMOGLOBIN 8.7 g/dL (12.0-15.5); LYMPHOCYTES % (AUTO) 14.2 % (13-45); MEAN CORPUSCULAR HEMOGLOBIN 24.4 pg (27.0-33.4); MEAN CORPUSCULAR HGB CONC 32.5 g/dL (32.0-36.0); MEAN CORPUSCULAR VOLUME 75 fl (80-97); MONOCYTES % (AUTO) 4.3 % (3-13); PLATELET COUNT 321 10^3/uL (150-450); RED BLOOD COUNT 3.56 10^6/uL (3.72-5.28); RED CELL DISTRIBUTION WIDTH 18.2 % (11.5-14.0); SEGMENTED NEUTROPHILS % (AUTO) 81.4 % (42-78); TOTAL CELLS COUNTED % (AUTO) 100 %; WHITE BLOOD COUNT 9.1 10^3/uL (4.0-10.5)
[2018-01-08 11:37] LABS: ANTICHROMATIN AB <0.2 AI (0.0-0.9); CENTROMERE B AB <0.2 AI (0.0-0.9); JO-1 ANTIBODY (ANACOMP) <0.2 AI (0.0-0.9); SJOGREN'S ANTI-SS-B AB <0.2 AI (0.0-0.9); SJOGREN'S SS-A ANTIBODY 0.6 AI (0.0-0.9)
[2018-01-08 12:07] LABS: DNA DOUBLE STRAND ANTIBODY ANA 3 IU/mL (0-9)
--- NOTE | 2018-01-08 15:23 | PDOC DISCHARGE SUMMARY ---
General - Admit/Disc Date/PCP Admission Date/Primary Care Provider: 01/05/18 20:46 Discharge Date: 01/08/18 - Discharge Diagnosis (1) Polyarticular arthritis Is this a current diagnosis for this admission?: Yes (2) Unable to ambulate Is this a current diagnosis for this admission?: Yes (3) Anemia Is this a current diagnosis for this admission?: Yes - Additional Information Resuscitation Status: Full Code Discharge Diet: As Tolerated, Regular Discharge Activity: Activity As Tolerated, Balance Activity w/Rest Prescriptions: Docusate Sodium [Colace 100 mg Capsule] 100 mg PO BID 15 Days #30 capsule Ferrous Sulfate [Feosol 325 mg Tablet] 325 mg PO BIDPCBS 30 Days #60 tablet Lansoprazole [Prevacid 30 mg Odt Tablet] 30 mg PO BID@0600,1700 40 Days #80 tab.rap Prednisone [Deltasone 20 mg Tablet] 10 mg PO DAILY 35 Days #245 tablet Home Medications: Docusate Sodium [Colace 100 mg Capsule] 100 mg PO BID 15 Days #30 capsule Ferrous Sulfate [Feosol 325 mg Tablet] 325 mg PO BIDPCBS 30 Days #60 tablet Lansoprazole [Prevacid 30 mg Odt Tablet] 30 mg PO BID@0600,1700 40 Days #80 tab.rap 01/08/18 Prednisone [Deltasone 20 mg Tablet] 10 mg PO DAILY 35 Days #245 tablet 01/08/18 History of Present Illness History of Present Illness: HARINI GONZALEZ is a 57 year old Lao-speaking female with a six-month history of recurrent bouts oligoarticular, asymmetric especially lower extremities of swelling and pain. As per daughter first episode started about 6 years ago she was worked up for Lyme disease which came back positive and she was properly treated. Her symptoms were relieved but a year later she had similar symptoms again. This time she was seen by protective signal installer and she was told that she does not have any rheumatological disease. Since then she has not been seeing any doctor but has been struggling from recurrent bouts of joint swelling and pain. She is originally from [facility] and she is receiving some types of medication which probably is steroids and she says it helps with her swelling and pain. She has morning stiffness of about 2-3 hours, associated with generalized fatigue, joint pain, hair loss, subjective fevers. She denies any photosensitivity, vision changes, oral old genital ulcers, history of STDs. She does endorse dry eyes, dry mouth and peeling of her skin especially in the lower extremities. Her daughter stated that she was diagnosed with Raynaud's and she gets purplish distal extremity when exposed to cold. Her mother also suffers from rheumatoid arthritis. Patient has seen primary care in [place] recommending a trial of antibiotics which were ineffective. 01/07/2018. No acute events overnight. Patient has significant improvement of her pain and swelling patient. Patient is able to ambulate better. Patient daughter was present at the time of my encounter and with the help of her I had advised patient that it is very important that she has to follow-up with protective signal installer as outpatient. She denies any fever, chills, nausea, vomiting, diarrhea or any constipation. Hospital Course Hospital Course: (1) Polyarticular arthritis Likely autoimmune. RA CBC negative except for anemia, CMP within normal limits. Markedly elevated ESR and CRP. TSH 0.41, free T4 1.61. Hepatitis panel negative. Bilateral knee x-ray unremarkable hand x-ray positive for erosive changes and metacarpal joints could be secondary to inflammatory arthritis possibly rheumatoid. Pending VU panel, vitamin D, ,Lyme serology, parvovirus, rheumatoid factor. Significant improvement of her symptoms. Unfortunately no rheumatology consult available. Will discharge patient on a tapered dose of glucocorticoids with high-dose PPIs for gastritis prophylaxis. Patient daughter and herself was counseled on risks of being on high-dose glucocorticoids long-term. There are strongly advised to follow-up with protective signal installer as soon as possible. (2) Unable to ambulate Due to problem #1. Improving. Supportive care. Physical therapy. (3) Anemia Microcytic anemia. Denies any hematemesis, hemoptysis, melena, hematochezia, vaginal bleeding. Low iron panel suggestive of iron deficiency anemia. Guaiac negative. Start on iron sulfate p.o. twice daily. Only advised to return back to ED if any sign of hematemesis, hematochezia or any other source of bleeding. Physical Exam Vital Signs: Temp Pulse Resp BP Pulse Ox 98.3 F 81 17 138/74 H 97 01/08/18 12:16 01/08/18 12:16 01/08/18 12:16 01/08/18 12:16 01/08/18 12:16 Intake & Output 01/07/18 01/08/18 01/09/18 06:59 06:59 06:59 Intake Total 1715 1818 Balance 1715 1818 Weight 55 kg Results Laboratory Results: 01/08/18 10:51 01/08/18 04:57 01/07/18 01/08/18 01/08/18 17:20 04:57 04:57 WBC 11.1 H D RBC 3.46 L Hgb 8.6 L Hct 26.1 L MCV 75 L MCH 24.9 L MCHC 33.1 RDW 17.9 H Plt Count 315 Seg Neutrophils % 88.4 H Lymphocytes % 8.2 L Monocytes % 3.3 Eosinophils % 0.0 Basophils % 0.1 Absolute Neutrophils 9.8 H Absolute Lymphocytes 0.9 Absolute Monocytes 0.4 Absolute Eosinophils 0.0 Absolute Basophils 0.0 Sodium 140.2 Potassium 4.5 Chloride 107 Carbon Dioxide 24 Anion Gap 9 BUN 20 Creatinine 0.56 Est GFR ( Amer) > 60 Est GFR (Non-Af Amer) > 60 Glucose 123 H Calcium 9.1 Total Bilirubin 0.1 L AST 25 ALT 34 Alkaline Phosphatase 79 Total Protein 6.0 L Albumin 2.9 L Stool Occult Blood NEGATIVE 01/08/18 10:51 WBC 9.1 RBC 3.56 L Hgb 8.7 L Hct 26.7 L MCV 75 L MCH 24.4 L MCHC 32.5 RDW 18.2 H Plt Count 321 Seg Neutrophils % 81.4 H Lymphocytes % 14.2 Monocytes % 4.3 Eosinophils % 0.0 Basophils % 0.1 Absolute Neutrophils 7.4 Absolute Lymphocytes 1.3 Absolute Monocytes 0.4 Absolute Eosinophils 0.0 Absolute Basophils 0.0 Sodium Potassium Chloride Carbon Dioxide Anion Gap BUN Creatinine Est GFR ( Amer) Est GFR (Non-Af Amer) Glucose Calcium Total Bilirubin AST ALT Alkaline Phosphatase Total Protein Albumin Stool Occult Blood Impressions: Hand X-Ray 01/06/18 00:00 IMPRESSION: Erosive changes within the carpus and metacarpal bases. Knee X-Ray 01/06/18 00:00 IMPRESSION: NEGATIVE STUDY OF THE RIGHT KNEE. NO EXPLANATION FOR PAIN. Qualifiers - * PATIENT BEING DISCHARGED WITH ANY OF THE FOLLOWING DIAGNOSIS: No
[2018-01-08 16:28] VITALS: BP 124/68
[2018-01-08 19:08] LABS: PARVOVIRUS B19 IGG AB 6.8 index (0.0-0.8); PARVOVIRUS B19 IGM AB 0.4 index (0.0-0.8)
[2018-01-11 15:37] LABS: LYME IGG P18 AB Absent (.); LYME IGG P23 AB Absent (.); LYME IGG P28 AB Absent (.); LYME IGG P30 AB Absent (.); LYME IGG P39 AB Absent (.); LYME IGG P41 AB Absent (.); LYME IGG P45 AB Absent (.); LYME IGG P58 AB Absent (.); LYME IGG P66 AB Absent (.); LYME IGG P93 AB Absent (.); LYME IGM P23 AB Absent (.); LYME IGM P39 AB Absent (.); LYME IGM P41 AB Absent (.)
[2018-01-12 08:57] LABS: LYME IGM WB INTERP Negative (.)
== END 2018-01-08 18:43 | disposition home or self-care (01) | DRG 554 ==
LOC: ER 17:15 → EH 20:46 → 4N 22:29
PROVIDERS: ADMIT Internal Medicine; ATTEND Internal Medicine
DX: M13.0 Polyarthritis, unspecified (principal); D50.9 Iron deficiency anemia, unspecified; R00.0 Tachycardia, unspecified; R53.83 Other fatigue; M25.571 Pain in right ankle and joints of right foot; M25.562 Pain in left knee; M79.642 Pain in left hand; M79.641 Pain in right hand
CPT/HCPCS: 36415; 80053; 80074; 81001; 82272; 82607; 82652; 82728; 82746; 83540; 83550; 83605; 84439; 84443; 84481; 85025; 85045; 85652; 86140; 86225; 86235; 86431; 86617; 86618; 86747; 87040; 96361; 96374; 96375; 99285; J1644; J1720; J1885; J2405; J7030; J7512

== ENCOUNTER → 2018-02-28 | Outpatient (CLI) | payer OTHER ==
[2018-02-28 16:01] LABS: RETICULOCYTE COUNT (AUTO) 1.73 % (0.66-2.85)
== END ==
LOC: OD 14:46
DX: D64.9 Anemia, unspecified (principal)
CPT/HCPCS: 36415; 85045

== ENCOUNTER → 2018-03-14 | Outpatient (CLI) | payer OTHER ==
[2018-03-14 14:59] LABS: ABSOLUTE LYMPHOCYTES (AUTO) 1.3 10^3/uL (0.5-4.7); ABSOLUTE MONOCYTES (AUTO) 0.4 10^3/uL (0.1-1.4); ABSOLUTE NEUT (AUTO) 4.6 10^3/uL (1.7-8.2); BASOPHILS % (AUTO) 0.1 % (0-2); HEMATOCRIT 33.6 % (36.0-47.0); HEMOGLOBIN 11.2 g/dL (12.0-15.5); LYMPHOCYTES % (AUTO) 20.8 % (13-45); MEAN CORPUSCULAR HEMOGLOBIN 27.2 pg (27.0-33.4); MEAN CORPUSCULAR HGB CONC 33.5 g/dL (32.0-36.0); MEAN CORPUSCULAR VOLUME 81 fl (80-97); MONOCYTES % (AUTO) 6.7 % (3-13); PLATELET COUNT 427 10^3/uL (150-450); RED BLOOD COUNT 4.14 10^6/uL (3.72-5.28); RED CELL DISTRIBUTION WIDTH 19.9 % (11.5-14.0); SEGMENTED NEUTROPHILS % (AUTO) 72.4 % (42-78); TOTAL CELLS COUNTED % (AUTO) 100 %; WHITE BLOOD COUNT 6.3 10^3/uL (4.0-10.5)
[2018-03-14 15:16] LABS: ALANINE AMINOTRANSFERASE 39 U/L (9-52); ALKALINE PHOSPHATASE 131 U/L (38-126); ANION GAP 11 (5-19); ASPARTATE AMINO TRANSFERASE 27 U/L (14-36); BILIRUBIN,DIRECT 0.1 mg/dL (0.0-0.4); BILIRUBIN,TOTAL 0.5 mg/dL (0.2-1.3); BLOOD UREA NITROGEN 19 mg/dL (7-20); CALCIUM 9.6 mg/dL (8.4-10.2); CARBON DIOXIDE 26 mmol/L (22-30); CHLORIDE 104 mmol/L (98-107); GLUCOSE 84 mg/dL (75-110); POTASSIUM 3.8 mmol/L (3.6-5.0); SODIUM 141.4 mmol/L (137-145)
== END ==
LOC: CCC 14:02
DX: D64.9 Anemia, unspecified (principal)
CPT/HCPCS: 36415; 80053; 83036; 84443; 85025

== ENCOUNTER → 2018-04-02 | Outpatient (CLI) | payer OTHER ==
[2018-04-02 11:04] LABS: ABSOLUTE LYMPHOCYTES (AUTO) 1.6 10^3/uL (0.5-4.7); ABSOLUTE MONOCYTES (AUTO) 0.5 10^3/uL (0.1-1.4); ABSOLUTE NEUT (AUTO) 5.9 10^3/uL (1.7-8.2); BASOPHILS % (AUTO) 0.1 % (0-2); HEMATOCRIT 34.1 % (36.0-47.0); HEMOGLOBIN 11.3 g/dL (12.0-15.5); MEAN CORPUSCULAR HEMOGLOBIN 27.4 pg (27.0-33.4); MEAN CORPUSCULAR HGB CONC 33.3 g/dL (32.0-36.0); MEAN CORPUSCULAR VOLUME 82 fl (80-97); MONOCYTES % (AUTO) 6.1 % (3-13); PLATELET COUNT 368 10^3/uL (150-450); RED BLOOD COUNT 4.14 10^6/uL (3.72-5.28); RED CELL DISTRIBUTION WIDTH 18.1 % (11.5-14.0); SEGMENTED NEUTROPHILS % (AUTO) 73.8 % (42-78); TOTAL CELLS COUNTED % (AUTO) 100 %
[2018-04-02 11:25] LABS: ALANINE AMINOTRANSFERASE 37 U/L (9-52); ALBUMIN 3.9 g/dL (3.5-5.0); ALKALINE PHOSPHATASE 121 U/L (38-126); ANION GAP 10 (5-19); ASPARTATE AMINO TRANSFERASE 32 U/L (14-36); BILIRUBIN,DIRECT 0.1 mg/dL (0.0-0.4); BILIRUBIN,TOTAL 0.4 mg/dL (0.2-1.3); BLOOD UREA NITROGEN 15 mg/dL (7-20); CALCIUM 9.5 mg/dL (8.4-10.2); CARBON DIOXIDE 26 mmol/L (22-30); CHLORIDE 104 mmol/L (98-107); GLUCOSE 91 mg/dL (75-110); POTASSIUM 4.2 mmol/L (3.6-5.0); SODIUM 139.9 mmol/L (137-145)
== END ==
LOC: CCC 10:25
DX: D64.9 Anemia, unspecified (principal); M25.50 Pain in unspecified joint
CPT/HCPCS: 36415; 80053; 83036; 84443; 85025; 86038